=== PATIENT | male | born 1990 | race Caucasian/White ===

== ENCOUNTER 2018-03-21 21:23 | Emergency (ER) | payer SELFPAY ==
[~2018-03-21] VITALS: Ht 160 cm; Wt 59.1 kg
[2018-03-21 21:32] VITALS: Ht 160 cm; Wt 59.1 kg
[2018-03-21] MEDS ORDERED: LEXAPRO10 MG PO (21:33)
[2018-03-21] MEDS ORDERED: ULTRAM50 MG PO (23:13)
[2018-03-21] MEDS ORDERED: PENICILLIN V P500 MG PO (23:13)
[2018-03-21 23:30] VITALS: BP 125/74
== END 2018-03-21 23:31 | disposition home or self-care (01) ==
LOC: D.ER 21:23
DX: S01.511A Laceration without foreign body of lip, initial encounter (principal); W18.09XA Striking against other object with subsequent fall, initial encounter; Y93.89 Activity, other specified; Y92.89 Other specified places as the place of occurrence of the external cause; F17.200 Nicotine dependence, unspecified, uncomplicated